=== PATIENT | male | born 1990 | race Caucasian/White ===

== ENCOUNTER 2019-03-12 17:52 | Emergency (ER) | payer MEDICAID ==
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
--- NOTE | 2019-03-13 10:25 | Diagnostic Imaging Report ---
Exam: Right wrist joint. HISTORY: Trauma. Findings: Multiple views of the right wrist joint reviewed. The study demonstrates no evidence of fracture or dislocation. The radiocarpal joint is intact. The carpal bones are normal. IMPRESSION: Normal examination right wrist joint.
--- NOTE | 2019-03-13 10:26 | Diagnostic Imaging Report ---
Exam: Left forearm. HISTORY: Trauma Findings: Multiple views of left forearm reviewed. The study demonstrates nondisplaced fracture of the left radial head. There is evidence for anterior and posterior elbow joint effusion. The remaining examination is intact. IMPRESSION: Nondisplaced fracture left radial head.
--- NOTE | 2019-03-13 10:26 | Diagnostic Imaging Report ---
Exam: Left elbow joint HISTORY trauma Findings: Multiple views of the left elbow joint demonstrates nondisplaced fracture of the left radial head. The anterior posterior joint effusion is noted. IMPRESSION: Nondisplaced fracture left radial head.
== END 2019-03-12 21:00 | disposition left against medical advice (07) ==
LOC: ER 17:52
DX: S52.122A Displaced fracture of head of left radius, initial encounter for closed fracture (principal); M25.531 Pain in right wrist; V19.9XXA Pedal cyclist (driver) (passenger) injured in unspecified traffic accident, initial encounter; Y93.89 Activity, other specified; Y92.89 Other specified places as the place of occurrence of the external cause; Y99.8 Other external cause status
CPT/HCPCS: 73070-TC-LT; 73090-TC-LT; 73100-TC-RT; Z7502